=== PATIENT | female | born 1950 | race Caucasian/White ===

== ENCOUNTER 2017-09-29 13:53 | Inpatient (IN) | payer MEDICARE, OTHER ==
[~2017-09-29] VITALS: Ht 170.2 cm; Wt 77.0 kg
[2017-09-29 14:48] LABS: BASOPHILS # (AUTO) 0.1 X10'3 (0-0.2); BASOPHILS % (AUTO) 0.6 % (0-1); EOSINOPHILS % (AUTO) 0.1 % (0-6); HEMATOCRIT 34.5 % (35.0-45.0); HEMOGLOBIN 11.9 g/dl (12.0-16.0); LYMPHOCYTES % (AUTO) 10.1 % (21-51); MEAN CORPUSCULAR HGB CONC 34.6 % (33.0-36.5); MEAN CORPUSCULAR VOLUME 89.5 FL (78-98); MEAN PLATELET VOLUME 8.3 FL (7.4-10.4); MONOCYTES # (AUTO) 1.4 X10'3 (0-0.9); NEUTROPHILS # (AUTO) 16.2 X10'3 (1.8-7.7); NEUTROPHILS % (AUTO) 82.2 % (42-75); PLATELET COUNT 469 X10'3 (140-440); RED BLOOD COUNT 3.85 X10'6 (4.20-5.60); RED CELL DISTRIBUTION WIDTH 12.4 % (11.5-14.5); WHITE BLOOD COUNT 19.7 X10'3 (4.5-11.0)
[2017-09-29 14:57] LABS: INR 1.1 INR; PARTIAL THROMBOPLASTIN TIME 44 SECONDS (22-32); PROTHROMBIN TIME 11.1 SECONDS (9.0-12.0)
[2017-09-29] MEDS ORDERED: normal saline 1000ml 1,000 ML IV SCH (15:02)
[2017-09-29] MEDS ORDERED: HYDROcodone/acetaminophen 5mg/325mg tablet PO PRN (15:05)
[2017-09-29] MEDS ORDERED: HYDROmorphone 1 mg/ml syringe IV PRN ×2 (15:05)
[2017-09-29] MEDS ORDERED: HYDROcodone/acetaminophen 10/325mg tab PO PRN (15:05)
[2017-09-29] MEDS ORDERED: magnesium hydroxide 30ml (MOM) UD suspension PO PRN (15:05)
[2017-09-29] MEDS ORDERED: bisacodyl 10mg suppository rectal RC PRN (15:05)
[2017-09-29] MEDS ORDERED: diphenhydrAMINE 25mg capsule PO PRN (15:05)
[2017-09-29] MEDS ORDERED: ondansetron/PF 4mg/2ml inj IV PRN (15:05)
[2017-09-29] MEDS ORDERED: diphenhydrAMINE 50 mg/ml inj IV PRN (15:05)
[2017-09-29] MEDS ORDERED: acetaminophen 325mg tablet PO PRN (15:05)
[2017-09-29] MEDS ORDERED: metoclopramide 5 mg/ml inj IV PRN (15:05)
[2017-09-29] MEDS ORDERED: acetaminophen 650mg rectal suppository RC PRN (15:05)
[2017-09-29 15:37] LABS: PLATELET ESTIMATE INCREASED; TOTAL CELLS COUNTED 100
[2017-09-29 15:50] LABS: ABG HCO3 25.2 mmol/L (22.0-26.0); ABG OXYGEN SATURATION 95.1 % (95-98); ABG PCO2 (T) 35.6 mmHg (32.0-45.0); ABG PO2 (T) 77.9 mmHg (83-108); FCOHb 0.3 % (0.5-1.5); FLOW 2 L/min; FMetHb 0.3 % (0.3-1.12); FO2Hb 94.5 % (94-100); PATIENT TEMPERATURE 37.4; TOTAL HEMOGLOBIN 12.3 G/dl (12.0-16.0)
[2017-09-29 15:56] LABS: HEMOGLOBIN A1C 6.3 % (4.5-6.2)
[2017-09-29 16:00] LABS: MAGNESIUM 1.7 MG/DL (1.5-2.4); PHOSPHORUS 3.8 MG/DL (2.3-4.5)
[2017-09-29] MEDS ORDERED: dextrose ORAL solution 15 GM/59 ML bottle PO PRN ×2 (16:05)
[2017-09-29] MEDS ORDERED: dextrose 50%-water 50ml dispensing syringe IV PRN ×2 (16:05)
[2017-09-29] MEDS ORDERED: glucagon, human recombinant 1mg kit SUBCUT PRN (16:05)
[2017-09-29] MEDS ORDERED: MESSAGE TO PHARMACY PO ONE (16:05)
[2017-09-29] MEDS ORDERED: albuterol 2.5 MG/3 ML nebule ONE (16:26)
[2017-09-29] MEDS ORDERED: LORazepam 2 mg/ml vial IV ONE ×2 (17:25→20:05)
[2017-09-29] MEDS: lactobacillus rhamnosus 10,000 MMU CELLS/CAPSULE PO SCH (17:36)
[2017-09-29 17:41] LABS: D-DIMER 1.42 MG/L FEU (0-0.50)
[2017-09-29 18:03] LABS: CLARITY,URINE CLEAR (Clear); COLOR,URINE YELLOW (Yellow); GLUCOSE, URINE NEGATIVE (Neg); KETONES,URINE 15 mg/dl (Neg); LEUKOCYTE ESTERASE ,URINE NEGATIVE (Neg); NITRITES, URINE NEGATIVE (Neg); OCCULT BLOOD,URINE TRACE-INTACT (Neg); PROTEIN,URINE 30 mg/dl (Neg)
[2017-09-29 18:04] LABS: UA COLLECTION TYPE STRAIGHT CATH
[2017-09-29 18:15] LABS: MUCUS STRANDS MODERATE /LPF (Neg); RBC,URINE 0-2 /HPF (0-2); SQUAMOUS EPITHELIAL CELL,UR FEW /LPF (FEW); WBC,URINE 0-4 /HPF (0-4)
[2017-09-29 18:16] LABS: BACTERIA,URINE FEW /HPF (Neg); FINE GRANULAR CAST 0-3 /LPF (NEGATIVE)
[2017-09-29] MEDS ORDERED: BENA1TAB14 PO (18:38)
[2017-09-29] MEDS ORDERED: MELO-100 PO (18:39)
[2017-09-29] MEDS ORDERED: CARSR60C PO (18:40)
[2017-09-29] MEDS ORDERED: PANT-47 PO (18:41)
[2017-09-29] MEDS ORDERED: ALBU18HF2 INH (18:43)
[2017-09-29] MEDS ORDERED: ALB0.5UD IH (18:43)
[2017-09-29] MEDS ORDERED: AFRIN NS (18:43)
[2017-09-29] MEDS ORDERED: CLOP75TA35 PO (18:46)
[2017-09-29] MEDS: methylPREDNISolone sod succ 125mg/2ml vial IV SCH (19:35)
[2017-09-29] MEDS: albuterol 2.5 MG/3 ML nebule NEB PRN ×2 (19:55→22:54)
[2017-09-29 20:02] LABS: PARTIAL THROMBOPLASTIN TIME 36 SECONDS (22-32)
[2017-09-29 20:11] LABS: ABG BASE EXCESS -4.1 mmol/L (-2.0-3.0); ABG HCO3 22.1 mmol/L (22.0-26.0); ABG OXYGEN SATURATION 94.1 % (95-98); ABG PCO2 (T) 45.1 mmHg (32.0-45.0); ABG PH (T) 7.309 (7.350-7.450); ABG PO2 (T) 79.1 mmHg (83-108); ALLEN'S TEST Positive; FCOHb 0.1 % (0.5-1.5); FLOW 5 L/min; FMetHb 0.1 % (0.3-1.12); FO2Hb 93.9 % (94-100); TOTAL HEMOGLOBIN 13.2 G/dl (12.0-16.0)
[2017-09-29] MEDS ORDERED: LORazepam 2 mg/ml vial IM ONE (20:30)
[2017-09-29] MEDS ORDERED: furosemide 10 MG/1 ML 10ml inj IV STA (20:43)
[2017-09-29] MEDS: heparin 10,000 units/1 ML INJ IV PRN (20:44)
[2017-09-29] MEDS ORDERED: temazepam 15mg capsule PO PRN (21:00)
[2017-09-29] MEDS: Insulin Detemir pen SQ SCH (21:00)
[2017-09-29 21:14] VITALS: BP 94/63
[2017-09-29 22:00] VITALS: BP 98/68
[2017-09-29 22:08] LABS: ALANINE AMINOTRANSFERASE 32 U/L (12-78); ALBUMIN 2.4 G/DL (3.4-5.0); ALBUMIN/GLOBULIN RATIO 0.6 (1.1-1.5); ALKALINE PHOSPHATASE 93 IU/L (46-116); ANION GAP 10 (8-16); ASPARTATE AMINO TRANSFERASE 48 U/L (10-37); BILIRUBIN,TOTAL 0.6 MG/DL (0.1-1.0); BLOOD UREA NITROGEN 23 MG/DL (7-18); BUN/CREATININE RATIO 32.4 (6.6-38.0); CALCIUM 8.7 MG/DL (8.5-10.1); CHLORIDE 102 MMOL/L (99-107); CREATININE 0.71 MG/DL (0.40-0.90); GLUCOSE 184 MG/DL (70-104); POTASSIUM 3.7 MMOL/L (3.5-5.1); SODIUM 138 MMOL/L (135-145); TOTAL PROTEIN 6.2 G/DL (6.4-8.2); eGFR 82 ML/MIN
[2017-09-29 23:31] LABS: TROPONIN I 4.12 NG/ML (0.0-0.05)
[2017-09-29 23:40] LABS: ABG BASE EXCESS 0.5 mmol/L (-2.0-3.0); ABG HCO3 25.1 mmol/L (22.0-26.0); ABG OXYGEN SATURATION 97.4 % (95-98); ABG PCO2 (T) 40.1 mmHg (32.0-45.0); ABG PH (T) 7.414 (7.350-7.450); ABG PO2 (T) 102.7 mmHg (83-108); ALLEN'S TEST Positive; FCOHb 0.1 % (0.5-1.5); FMetHb 0.3 % (0.3-1.12); RESPIRATORY RATE 12 b/min; RESPIRATORY RATE (OBSERVED) 19 b/min; TOTAL HEMOGLOBIN 12.4 G/dl (12.0-16.0)
[2017-09-30] VITALS (8 sets, daily range): BP systolic 107–122; BP diastolic 61–74
[2017-09-30 03:14] LABS: BASOPHILS % (AUTO) 0 % (0-1); EOSINOPHILS % (AUTO) 0 % (0-6); HEMATOCRIT 35.1 % (35.0-45.0); HEMOGLOBIN 11.9 g/dl (12.0-16.0); LYMPHOCYTES % (AUTO) 5.9 % (21-51); MEAN CORPUSCULAR HEMOGLOBIN 30.6 PG (27.0-31.0); MEAN CORPUSCULAR VOLUME 89.9 FL (78-98); MEAN PLATELET VOLUME 8.2 FL (7.4-10.4); MONOCYTES # (AUTO) 0.1 X10'3 (0-0.9); MONOCYTES % (AUTO) 0.7 % (2-12); NEUTROPHILS # (AUTO) 15.1 X10'3 (1.8-7.7); NEUTROPHILS % (AUTO) 93.4 % (42-75); PLATELET COUNT 457 X10'3 (140-440); RED BLOOD COUNT 3.91 X10'6 (4.20-5.60); RED CELL DISTRIBUTION WIDTH 12.4 % (11.5-14.5); WHITE BLOOD COUNT 16.2 X10'3 (4.5-11.0)
[2017-09-30] MEDS: ipratropium/albuterol 3ml nebule NEB SCH ×6 (03:15→23:07)
[2017-09-30 03:35] LABS: ALANINE AMINOTRANSFERASE 31 U/L (12-78); ALBUMIN 2.4 G/DL (3.4-5.0); ALBUMIN/GLOBULIN RATIO 0.6 (1.1-1.5); ALKALINE PHOSPHATASE 91 IU/L (46-116); ANION GAP 8 (8-16); ASPARTATE AMINO TRANSFERASE 54 U/L (10-37); BILIRUBIN,TOTAL 0.4 MG/DL (0.1-1.0); CHLORIDE 103 MMOL/L (99-107); CHOL/HDL RATIO 3.3 (0.00-4.99); CHOLESTEROL 114 MG/DL (0-200); CREATININE 0.69 MG/DL (0.40-0.90); GLUCOSE 205 MG/DL (70-104); HDL CHOLESTEROL 35 MG/DL (35-60); LDL CHOLESTEROL 75 MG/DL (50-100); POTASSIUM 3.9 MMOL/L (3.5-5.1); SODIUM 139 MMOL/L (135-145); TOTAL CARBON DIOXIDE 27.7 MMOL/L (24-32); TOTAL PROTEIN 6.6 G/DL (6.4-8.2); TRIGLYCERIDES 65 MG/DL (20-135); eGFR 85 ML/MIN
[2017-09-30 03:56] LABS: BLOOD UREA NITROGEN 25 MG/DL (7-18); BUN/CREATININE RATIO 36.2 (6.6-38.0)
[2017-09-30] MEDS: azithromycin/NS 500mg/250ml 250 ML IV SCH (07:55)
[2017-09-30] MEDS: lisinopril 5mg tablet PO SCH (08:00)
[2017-09-30] MEDS: pantoprazole 40mg Tablet.DR PO SCH (08:00)
[2017-09-30] MEDS: lactobacillus rhamnosus 10,000 MMU CELLS/CAPSULE PO SCH ×2 (08:00→17:34)
[2017-09-30] MEDS: atorvastatin 10mg tablet PO SCH (08:00)
[2017-09-30] MEDS: aspirin 81mg tab.chew PO SCH (08:00)
[2017-09-30] MEDS: nicotine 21mg patch - 24 hr TD SCH (08:00)
[2017-09-30] MEDS: methylPREDNISolone sod succ 125mg/2ml vial IV SCH ×2 (08:01→19:24)
[2017-09-30] MEDS: carVEDilol 3.125mg tablet PO SCH ×2 (08:30→19:24)
[2017-09-30] MEDS ORDERED: LORazepam 1 MG tablet PO ONE (10:20)
[2017-09-30] MEDS ORDERED: midazolam 2 mg/2 ml injection ONE (10:51)
[2017-09-30] MEDS ORDERED: heparin 1,000unit/ml 10ml vial 10 ML ONE (10:51)
[2017-09-30] MEDS ORDERED: LIDOcaine 1%/PF (10mg/ml) 5ml vial ONE (10:51)
[2017-09-30] MEDS ORDERED: fentaNYL/PF 50MCG/1 ML 2ML syringe ONE (10:51)
[2017-09-30] MEDS ORDERED: IOHEXOL 350 MG/ML 150 ML injection IV ONE (10:51)
[2017-09-30] MEDS: ketoconazole 2% cream 15gm TOP PRN ×2 (10:55→19:41)
[2017-09-30] MEDS: heparin 10,000 units/1 ML INJ IV PRN (11:14)
[2017-09-30] MEDS ORDERED: iohexol 350 MG/ML 50ML vial IV ONE (12:18)
[2017-09-30] MEDS ORDERED: normal saline 1000ml 1,000 ML IV SCH (13:23)
[2017-09-30] MEDS ORDERED: proCHLORperazine 10 MG/2 ml inj IV PRN (13:30)
[2017-09-30] MEDS ORDERED: nitroGLYCERIN 0.4mg SUBLingual tab SL PRN (13:30)
[2017-09-30] MEDS: insulin Lispro (HumaLOG) vial - multi-dose SQ SCH (19:32)
[2017-09-30] MEDS: OXAZEpam 15mg capsule PO PRN (22:07)
[2017-09-30] MEDS: Insulin Detemir pen SQ SCH (22:13)
[2017-10-01] MEDS: ipratropium/albuterol 3ml nebule NEB SCH ×6 (02:42→23:13)
[2017-10-01 03:00] VITALS: BP 112/67
[2017-10-01 05:30] VITALS: BP 133/67
[2017-10-01 06:00] LABS: BASOPHILS % (AUTO) 0.1 % (0-1); EOSINOPHILS % (AUTO) 0 % (0-6); HEMATOCRIT 33.4 % (35.0-45.0); HEMOGLOBIN 11.2 g/dl (12.0-16.0); LYMPHOCYTES # (AUTO) 1.2 X10'3 (1.1-4.8); LYMPHOCYTES % (AUTO) 6.4 % (21-51); MEAN CORPUSCULAR HEMOGLOBIN 30.5 PG (27.0-31.0); MEAN CORPUSCULAR HGB CONC 33.5 % (33.0-36.5); MEAN CORPUSCULAR VOLUME 90.8 FL (78-98); MEAN PLATELET VOLUME 8.6 FL (7.4-10.4); MONOCYTES # (AUTO) 0.5 X10'3 (0-0.9); MONOCYTES % (AUTO) 2.4 % (2-12); NEUTROPHILS # (AUTO) 17.7 X10'3 (1.8-7.7); NEUTROPHILS % (AUTO) 91.1 % (42-75); PLATELET COUNT 464 X10'3 (140-440); RED BLOOD COUNT 3.68 X10'6 (4.20-5.60); RED CELL DISTRIBUTION WIDTH 12.3 % (11.5-14.5); WHITE BLOOD COUNT 19.5 X10'3 (4.5-11.0)
[2017-10-01 06:38] LABS: ALANINE AMINOTRANSFERASE 28 U/L (12-78); ALBUMIN 2.2 G/DL (3.4-5.0); ALBUMIN/GLOBULIN RATIO 0.6 (1.1-1.5); ALKALINE PHOSPHATASE 72 IU/L (46-116); ANION GAP 5 (8-16); ASPARTATE AMINO TRANSFERASE 21 U/L (10-37); BILIRUBIN,TOTAL 0.2 MG/DL (0.1-1.0); BLOOD UREA NITROGEN 27 MG/DL (7-18); BUN/CREATININE RATIO 44.3 (6.6-38.0); CALCIUM 9.2 MG/DL (8.5-10.1); CHLORIDE 107 MMOL/L (99-107); CREATININE 0.61 MG/DL (0.40-0.90); GLUCOSE 184 MG/DL (70-104); SODIUM 143 MMOL/L (135-145); TOTAL CARBON DIOXIDE 30.8 MMOL/L (24-32); TOTAL PROTEIN 5.8 G/DL (6.4-8.2); eGFR > 90 ML/MIN
[2017-10-01] MEDS: pantoprazole 40mg Tablet.DR PO SCH (07:43)
[2017-10-01] MEDS: lactobacillus rhamnosus 10,000 MMU CELLS/CAPSULE PO SCH (07:43)
[2017-10-01] MEDS: spironolactone 25 MG tablet PO SCH (07:43)
[2017-10-01] MEDS: lisinopril 5mg tablet PO SCH (07:43)
[2017-10-01] MEDS: aspirin 81mg tab.chew PO SCH (07:43)
[2017-10-01] MEDS: azithromycin/NS 500mg/250ml 250 ML IV SCH (07:44)
[2017-10-01] MEDS: carVEDilol 3.125mg tablet PO SCH ×2 (07:44→19:57)
[2017-10-01] MEDS: atorvastatin 10mg tablet PO SCH (07:44)
[2017-10-01] MEDS: methylPREDNISolone sod succ 125mg/2ml vial IV SCH ×2 (07:44→19:57)
[2017-10-01] MEDS: nicotine 21mg patch - 24 hr TD SCH (07:56)
[2017-10-01] MEDS: insulin Lispro (HumaLOG) vial - multi-dose SQ SCH ×3 (09:26→20:00)
[2017-10-01] MEDS: OXAZEpam 15mg capsule PO PRN ×2 (09:47→22:45)
[2017-10-01 15:00] VITALS: BP 109/62
[2017-10-01] MEDS ORDERED: non-formulary drug (Albuterol Sulfate (Ventolin Hfa) 2 PUFFS) INH SCH (17:20)
[2017-10-01] MEDS ORDERED: non-formulary drug (Albuterol Sulfate Nebs* (Proventil Nebs*) 2.5 MG) IH PRN (17:20)
[2017-10-01] MEDS ORDERED: GABA-532 PO (18:01)
[2017-10-01 19:00] VITALS: BP 133/77
[2017-10-01] MEDS: gabapentin 300mg capsule PO SCH (20:55)
[2017-10-01] MEDS: Insulin Detemir pen SQ SCH (21:03)
[2017-10-01 23:00] VITALS: BP 132/78
[2017-10-01] MEDS: mag hydrox/Alum hydrox/simeth 30ml oral suspension PO PRN (23:28)
[2017-10-02 03:00] VITALS: BP_SYST 100; BP_SYST 121; BP_DIAS 67; BP_DIAS 73
[2017-10-02] MEDS: ipratropium/albuterol 3ml nebule NEB SCH ×4 (03:58→14:40)
[2017-10-02 06:00] VITALS: BP 115/69
[2017-10-02 06:39] LABS: BASOPHILS # (AUTO) 0.1 X10'3 (0-0.2); BASOPHILS % (AUTO) 0.4 % (0-1); EOSINOPHILS % (AUTO) 0 % (0-6); HEMATOCRIT 33.8 % (35.0-45.0); HEMOGLOBIN 11.5 g/dl (12.0-16.0); LYMPHOCYTES % (AUTO) 5.6 % (21-51); MEAN CORPUSCULAR HEMOGLOBIN 30.9 PG (27.0-31.0); MEAN CORPUSCULAR HGB CONC 34.1 % (33.0-36.5); MEAN CORPUSCULAR VOLUME 90.7 FL (78-98); MEAN PLATELET VOLUME 8.8 FL (7.4-10.4); MONOCYTES # (AUTO) 0.5 X10'3 (0-0.9); MONOCYTES % (AUTO) 2.5 % (2-12); NEUTROPHILS # (AUTO) 16.9 X10'3 (1.8-7.7); NEUTROPHILS % (AUTO) 91.5 % (42-75); PLATELET COUNT 476 X10'3 (140-440); RED BLOOD COUNT 3.72 X10'6 (4.20-5.60); RED CELL DISTRIBUTION WIDTH 12.1 % (11.5-14.5); WHITE BLOOD COUNT 18.5 X10'3 (4.5-11.0)
[2017-10-02] MEDS ORDERED: LACTOBACILLUS RHAMNOSUS GG 15 billion unit sprinkle caps PO SCH (07:30)
[2017-10-02] MEDS: mag hydrox/Alum hydrox/simeth 30ml oral suspension PO PRN ×2 (07:51→13:24)
[2017-10-02] MEDS ORDERED: lisinopril 20mg tablet PO SCH (08:00)
[2017-10-02] MEDS: nicotine 21mg patch - 24 hr TD SCH (08:00)
[2017-10-02] MEDS ORDERED: pantoprazole 40mg Tablet.DR PO SCH (08:00)
[2017-10-02] MEDS ORDERED: methylPREDNISolone sod succ 125mg/2ml vial IV SCH (08:00)
[2017-10-02] MEDS ORDERED: HYDROchlorothiazide 12.5mg capsule PO SCH (08:00)
[2017-10-02] MEDS ORDERED: non-formulary drug (Benazepril/Hydrochlorothiazide (Benazepril-Hctz 20-12.5 Mg Tab) 1 TAB) PO SCH (08:00)
[2017-10-02] MEDS ORDERED: clopidogrel 75mg tablet PO SCH (08:00)
[2017-10-02] MEDS ORDERED: diltiazem SR 60mg capsule (twice daily) PO SCH (08:00)
[2017-10-02 08:11] LABS: ALANINE AMINOTRANSFERASE 38 U/L (12-78); ALBUMIN 2.4 G/DL (3.4-5.0); ALBUMIN/GLOBULIN RATIO 0.7 (1.1-1.5); ALKALINE PHOSPHATASE 68 IU/L (46-116); ANION GAP 8 (8-16); ASPARTATE AMINO TRANSFERASE 21 U/L (10-37); BILIRUBIN,TOTAL 0.3 MG/DL (0.1-1.0); BLOOD UREA NITROGEN 31 MG/DL (7-18); BUN/CREATININE RATIO 44.3 (6.6-38.0); CALCIUM 8.9 MG/DL (8.5-10.1); CHLORIDE 107 MMOL/L (99-107); GLUCOSE 184 MG/DL (70-104); POTASSIUM 4.2 MMOL/L (3.5-5.1); SODIUM 144 MMOL/L (135-145); TOTAL CARBON DIOXIDE 28.7 MMOL/L (24-32); TOTAL PROTEIN 5.8 G/DL (6.4-8.2); eGFR 83 ML/MIN
[2017-10-02 08:14] VITALS: BP 141/75
[2017-10-02] MEDS: gabapentin 300mg capsule PO SCH ×2 (08:15→13:16)
[2017-10-02] MEDS: pantoprazole 40mg Tablet.DR PO SCH (08:16)
[2017-10-02] MEDS: aspirin 81mg tab.chew PO SCH (08:16)
[2017-10-02] MEDS: atorvastatin 10mg tablet PO SCH (08:16)
[2017-10-02] MEDS: spironolactone 25 MG tablet PO SCH (08:16)
[2017-10-02] MEDS: azithromycin/NS 500mg/250ml 250 ML IV SCH (08:17)
[2017-10-02] MEDS: carVEDilol 3.125mg tablet PO SCH (08:17)
[2017-10-02] MEDS: insulin Lispro (HumaLOG) vial - multi-dose SQ SCH ×2 (08:34→13:22)
[2017-10-02 11:00] VITALS: BP 92/59
[2017-10-02] MEDS ORDERED: DILT120C62 PO (13:53)
[2017-10-02] MEDS ORDERED: ATOR10TA PO (13:53)
[2017-10-02] MEDS ORDERED: PRED10TA23 PO (13:53)
[2017-10-02] MEDS ORDERED: SPIR25TA3 PO (13:53)
== END 2017-10-02 16:20 | disposition home or self-care (01) | DRG 280 ==
LOC: ER 13:54 → ED HOLD 15:02 → EDBEDREQ 16:51 → PCU 3S 19:20
PROVIDERS: ADMIT Family Medicine; ATTEND Internal Medicine
PROC: 5A09357 Assistance with Respiratory Ventilation, Less than 24 Consecutive Hours, Continuous Positive Airway Pressure (ICD-10-PCS; 2017-09-29)
PROC: B32T1ZZ Computerized Tomography (CT Scan) of Left Pulmonary Artery using Low Osmolar Contrast (ICD-10-PCS; 2017-09-29)
PROC: B3201ZZ Computerized Tomography (CT Scan) of Thoracic Aorta using Low Osmolar Contrast (ICD-10-PCS; 2017-09-29)
PROC: B32S1ZZ Computerized Tomography (CT Scan) of Right Pulmonary Artery using Low Osmolar Contrast (ICD-10-PCS; 2017-09-29)
PROC: BB241ZZ Computerized Tomography (CT Scan) of Bilateral Lungs using Low Osmolar Contrast (ICD-10-PCS; 2017-09-29)
PROC: 4A023N7 Measurement of Cardiac Sampling and Pressure, Left Heart, Percutaneous Approach (ICD-10-PCS; principal; 2017-09-30)
PROC: B2111ZZ Fluoroscopy of Multiple Coronary Arteries using Low Osmolar Contrast (ICD-10-PCS; 2017-09-30)
PROC: B2151ZZ Fluoroscopy of Left Heart using Low Osmolar Contrast (ICD-10-PCS; 2017-09-30)
PROC: B3101ZZ Fluoroscopy of Thoracic Aorta using Low Osmolar Contrast (ICD-10-PCS; 2017-09-30)
PROC: B2131ZZ Fluoroscopy of Multiple Coronary Artery Bypass Grafts using Low Osmolar Contrast (ICD-10-PCS; 2017-09-30)
PROC: B51B1ZZ Fluoroscopy of Right Lower Extremity Veins using Low Osmolar Contrast (ICD-10-PCS; 2017-09-30)
PROC: B5171ZZ Fluoroscopy of Left Subclavian Vein using Low Osmolar Contrast (ICD-10-PCS; 2017-09-30)
DX: I21.4 Non-ST elevation (NSTEMI) myocardial infarction (principal); J18.9 Pneumonia, unspecified organism; I50.23 Acute on chronic systolic (congestive) heart failure; E11.42 Type 2 diabetes mellitus with diabetic polyneuropathy; J44.0 Chronic obstructive pulmonary disease with (acute) lower respiratory infection; J44.1 Chronic obstructive pulmonary disease with (acute) exacerbation; I51.81 Takotsubo syndrome; E11.65 Type 2 diabetes mellitus with hyperglycemia; E78.00 Pure hypercholesterolemia, unspecified; E78.5 Hyperlipidemia, unspecified; I25.10 Atherosclerotic heart disease of native coronary artery without angina pectoris; I45.10 Unspecified right bundle-branch block; K21.9 Gastro-esophageal reflux disease without esophagitis; R09.02 Hypoxemia; Z90.49 Acquired absence of other specified parts of digestive tract; Z95.1 Presence of aortocoronary bypass graft; I25.2 Old myocardial infarction; Z88.5 Allergy status to narcotic agent; Z88.0 Allergy status to penicillin; Z88.8 Allergy status to other drugs, medicaments and biological substances; Z79.899 Other long term (current) drug therapy; Z86.73 Personal history of transient ischemic attack (TIA), and cerebral infarction without residual deficits; Z87.891 Personal history of nicotine dependence; Z82.49 Family history of ischemic heart disease and other diseases of the circulatory system; Z81.8 Family history of other mental and behavioral disorders
CPT/HCPCS: 36415; 36600; 71045; 71275; 80053; 80061; 81001; 82803; 82948; 83036; 83605; 83735; 83880; 84100; 84484; 85018; 85025; 85379; 85610; 85730; 87040; 87070; 93005; 93306; 93459; 93567; 94640; 94660; 94760; 96365; 97110; 97116; 97161; 97530; 99152; 99153; 99285; A4353; A4620; A6257; C1769; J0456; J1644; J1940; J2001; J2060; J2250; J2270; J2930; J3010; J7030; Q9967

== ENCOUNTER 2022-05-09 08:09 | Day surgery (SDC) | payer MEDICARE, OTHER ==
[2022-05-09] VITALS (10 sets, daily range): BP systolic 134–169; BP diastolic 57–77
[~2022-05-09] VITALS: Ht 170.2 cm; Wt 69.6 kg
[~2022-05-09 08:09] MED LIST: AFRIN NS; ALB0.5UD IH; ALBU18HF2 INH; ATOR10TA PO; BENA1TAB14 PO; CLOP75TA34 PO; DILT120C62 PO; GABA-532 PO; PANT-47 PO; SPIR25TA5 PO
[2022-05-09] MEDS ORDERED: normal saline 1000ml 1,000 ML IV SCH ×2 (08:25→12:25)
[2022-05-09] MEDS ORDERED: diphenhydrAMINE 25mg capsule PO ONE (08:30)
[2022-05-09] MEDS ORDERED: diphenhydrAMINE 25mg capsule PO PRN (08:30)
[2022-05-09 09:02] LABS: BASOPHILS # (AUTO) 0.1 X10'3 (0-0.2); EOSINOPHILS # (AUTO) 0.2 X10'3 (0-0.9); EOSINOPHILS % (AUTO) 4.2 % (0-6); HEMATOCRIT 45.3 % (35.0-45.0); HEMOGLOBIN 15.2 g/dl (12.0-16.0); LYMPHOCYTES # (AUTO) 1.6 X10'3 (1.1-4.8); LYMPHOCYTES % (AUTO) 29.5 % (21-51); MEAN CORPUSCULAR HEMOGLOBIN 30.6 PG (27.0-31.0); MEAN CORPUSCULAR HGB CONC 33.7 g/dL (33.0-36.5); MEAN CORPUSCULAR VOLUME 90.9 FL (78-98); MEAN PLATELET VOLUME 8.2 FL (7.4-10.4); MONOCYTES # (AUTO) 0.4 X10'3 (0-0.9); NEUTROPHILS # (AUTO) 3.2 X10'3 (1.8-7.7); NEUTROPHILS % (AUTO) 57.3 % (42-75); PLATELET COUNT 321 X10'3 (140-440); RED BLOOD COUNT 4.98 X10'6 (4.20-5.60); RED CELL DISTRIBUTION WIDTH 13.1 % (11.5-14.5); WHITE BLOOD COUNT 5.5 X10'3 (4.5-11.0)
[2022-05-09] MEDS ORDERED: ALBU0.63 NEB (09:07)
[2022-05-09] MEDS ORDERED: SPIR25TA5 PO (09:07)
[2022-05-09] MEDS ORDERED: FLUT1AER IH (09:07)
[2022-05-09] MEDS ORDERED: GLIP2.5T3 PO (09:08)
[2022-05-09] MEDS ORDERED: PIOG15TA70 PO (09:08)
[2022-05-09] MEDS ORDERED: NOVRI SQ (09:08)
[2022-05-09 09:14] LABS: ALBUMIN 4.6 G/DL (3.4-5.0); ANION GAP 12 (8-16); BLOOD UREA NITROGEN 13 MG/DL (7-18); BUN/CREATININE RATIO 16.9 (6.6-38.0); CALCIUM 9.5 MG/DL (8.5-10.1); CHLORIDE 102 MMOL/L (99-107); CREATININE 0.77 MG/DL (0.40-0.90); GLUCOSE 156 MG/DL (70-104); MAGNESIUM 1.9 MG/DL (1.5-2.4); POTASSIUM 3.7 MMOL/L (3.5-5.1); SODIUM 144 MMOL/L (135-145); TOTAL CARBON DIOXIDE 30.5 MMOL/L (24-32); eGFR 74 ML/MIN
[2022-05-09] MEDS ORDERED: ATOR40TA72 PO (09:17)
[2022-05-09] MEDS ORDERED: iohexol 350MG/ML 100ml bottle IV ONE ×4 (09:58→11:25)
[2022-05-09] MEDS ORDERED: heparin 1,000unit/ml 10ml vial 10 ML ONE (09:58)
[2022-05-09] MEDS ORDERED: LIDOcaine 1% 30ml preserv. free vial ONE (09:58)
[2022-05-09] MEDS ORDERED: fentaNYL/PF 50MCG/1 ML 2ML syringe ONE (09:58)
[2022-05-09] MEDS ORDERED: midazolam 1 mg/ML 2ml injection ONE (09:58)
[2022-05-09] MEDS ORDERED: nitroGLYCERIN-Tridil 50MG/D5W 250 ML IV ONE (10:47)
[2022-05-09] MEDS ORDERED: ticagrelor 90mg tablet ONE (11:52)
[2022-05-09] MEDS ORDERED: clopidogrel 300mg tablet ONE (11:53)
[2022-05-09] MEDS ORDERED: ondansetron/PF 4mg/2ml inj IV PRN (12:25)
[2022-05-09] MEDS ORDERED: HYDROcodone/acetaminophen 10/325mg tab PO PRN (12:25)
[2022-05-09] MEDS ORDERED: HYDROcodone/acetaminophen 5mg/325mg tablet PO PRN (12:25)
== END 2022-05-09 15:55 | disposition home or self-care (01) ==
LOC: SSTAY O 08:09
PROVIDERS: ATTEND Internal Medicine Cardiovascular Disease
DX: I25.118 Atherosclerotic heart disease of native coronary artery with other forms of angina pectoris (principal); I10 Essential (primary) hypertension; I25.2 Old myocardial infarction; E11.9 Type 2 diabetes mellitus without complications; I47.1 Supraventricular tachycardia; I49.5 Sick sinus syndrome; J44.9 Chronic obstructive pulmonary disease, unspecified; G47.33 Obstructive sleep apnea (adult) (pediatric); K21.9 Gastro-esophageal reflux disease without esophagitis; Z98.890 Other specified postprocedural states; Z82.49 Family history of ischemic heart disease and other diseases of the circulatory system; Z95.1 Presence of aortocoronary bypass graft
CPT/HCPCS: 36415; 80048; 82948; 83735; 85025; 85610; 93005; 93459; 99152; 99153; C1725; C1751; C1760; C1769; C1874; C1894; C9600; C9604; J1644; J2250; J3010; J3490; J7030; Q0163; Q9967; A4620; A6258